=== PATIENT | female | born 1955 | race Caucasian/White ===

== ENCOUNTER 2021-06-17 14:01 | Emergency (ER) | payer OTHER, MEDICARE, MEDICAID ==
[2021-06-17 16:09] VITALS: BP 113/65; PULSE 69
[2021-06-17] MEDS ORDERED: Sodium Chloride 0.9% 1,000 ML IV STA (16:55)
[2021-06-17] MEDS ORDERED: Sodium Chloride 0.9% 500 ML IV STA (17:20)
--- NOTE | 2021-06-17 17:24 | CT ---
Head CT Technique: Multiple axial sections through the brain were obtained. Intravenous contrast was not utilized. Reconstructed coronal and sagittal images were obtained. Comparison: No prior intracranial imaging is available. Findings: Ventricles along with basal cisterns and sulci over the convexities are within normal limits for the patient's age. No abnormal parenchymal densities are seen. No evidence of intracranial hemorrhage is seen. No midline shift or mass-effect is seen. Bone window settings were reviewed which show mild atherosclerotic calcification within the carotid siphon and vertebral vessels. Visualized mastoid sinuses and paranasal sinuses show nothing acute. No acute calvarial abnormality is appreciated. Impression: 1. Minimal senescent change. 2. Nothing acute is seen on noncontrast CT study of the brain. Diagnostic code #2
--- NOTE | 2021-06-17 17:31 | CR ---
Chest: Frontal view of the chest was obtained. Comparison: No prior chest imaging is available. AICD is present. Prior cervical spine surgery is noted. Mild degenerative change is seen within both shoulders. Scoliosis is noted within the spine with scattered degenerative change. Lungs show no acute parenchymal change. Possible emphysematous change is present. Heart size is felt to be minimally prominent. Upper mediastinum is normal. Impression: 1. Probable emphysematous change. 2. Other findings as noted above. 3. Nothing acute is definitely appreciated. Diagnostic code #2
--- NOTE | 2021-06-17 17:43 | EDM.PDOC ---
ED HPI GENERAL MEDICAL PROBLEM - General Chief Complaint: Gastrointestinal Problem Stated Complaint: COVID + Time Seen by Provider: 06/17/21 16:04 Source of Information: Reports: Patient, RN Notes Reviewed History Limitations: Reports: No Limitations - History of Present Illness INITIAL COMMENTS - FREE TEXT/NARRATIVE: Patient is a 65-year-old female presenting to the emergency department with reported symptoms of Covid. Patient reports that she had vomiting during the night. She is a member of [employer] and the nurse also reported that she told that she was sleeping on the toilet because she had diarrhea. Patient is quite obtunded, but does know that she is in the hospital. She requires much coaxing in order to answer questions. She denies having a cough or feeling short of breath. Nursing staff is not able to give us much better report. They state that her blood pressure "was not normal "for herself and that it was higher than normal, however they cannot tell us what normal is for her. They state that her son said that she "was not herself" this morning. On arrival to ER, vital signs are stable the exception of oxygen slight low at 93%. The time of my exam, she was saturating 88% on room air. Throat Pain Score (Numeric/FACES): 2 - Related Data Allergies Allergy/AdvReac Type Severity Reaction Status Date / Time cephalexin [From Keflex] Allergy Other Verified 06/17/21 18:10 Cephalosporins Allergy Other Verified 06/17/21 18:10 Penicillins Allergy Other Verified 06/17/21 18:10 Tetracyclines Allergy Other Verified 06/17/21 18:10 varenicline Allergy Other Verified 06/17/21 18:10 Anesthesia Allergy Other Uncoded 06/17/21 18:10 Honeydew Allergy Other Uncoded 06/17/21 18:10 Home Meds: Home Meds Acetaminophen [Tylenol] 325 - 650 mg PO Q6H PRN 06/17/21 [History] Albuterol [Ventolin HFA] 2 puff INH Q6H 06/17/21 [History] Aspirin 81 mg PO DAILY 06/17/21 [History] Budesonide/Formoterol Fumarate [Symbicort 160-4.5 Mcg Inhaler] 2 puff INH BID 06/17/21 [History] Clopidogrel [Plavix] 75 mg PO DAILY 06/17/21 [History] Denosumab [Prolia] 1 ml SQ ASDIRECTED 06/17/21 [History] Fluticasone Propionate [Flonase] 1 spray MIKE DAILY 06/17/21 [History] Isosorbide Mononitrate [Isosorbide Mononitrate ER] 30 mg PO DAILY 06/17/21 [History] Lidocaine 5% [Lidoderm 5%] 1 patch TOP DAILY 06/17/21 [History] Menthol [Page] 3.2 mg MM Q4H PRN 06/17/21 [History] Metoprolol Succinate [Toprol Xl] 50 mg PO DAILY 06/17/21 [History] Morphine [MS Contin] 100 mg PO BID 06/17/21 [History] Multivit with Iron,Minerals [Flintstones Complete] 1 tab PO DAILY 06/17/21 [History] Pravastatin [Pravachol] 20 mg PO DAILY 06/17/21 [History] Pregabalin [Lyrica] 75 mg PO DAILY 06/17/21 [History] lisinopriL [Lisinopril] 2.5 mg PO DAILY 06/17/21 [History] polyethylene glycoL 3350 [Laxaclear] 17 gm PO DAILY 06/17/21 [History] traMADol HCl [Tramadol HCl] 1 tab PO Q4H PRN 06/17/21 [History] Past Medical History HEENT History: Reports: Allergic Rhinitis, Cataract Cardiovascular History: Reports: CAD, Heart Failure, High Cholesterol, Hypertension, [place], Other (See Below) Other Cardiovascular History: cardiac arrest, mitral insufficiency Respiratory History: Reports: Asthma, Sleep Apnea Other Respiratory History: emphysema Gastrointestinal History: Reports: Chronic Constipation Genitourinary History: Reports: Urinary Incontinence Musculoskeletal History: Reports: Back Pain, Chronic Social & Family History - Tobacco Use Tobacco Use Status *Q: Current Some Day Tobacco User Years of Tobacco use: 40 Packs/Tins Daily: 0.5 - Caffeine Use Caffeine Use: Reports: None - Recreational Drug Use Recreational Drug Use: No ED ROS GENERAL - Review of Systems Review Of Systems: See Below Constitutional: Reports: Fatigue. Denies: Fever, Chills HEENT: Reports: No Symptoms Respiratory: Reports: No Symptoms. Denies: Shortness of Breath, Cough Cardiovascular: Reports: No Symptoms. Denies: Chest Pain, Dyspnea on Exertion, Lightheadedness, Syncope Endocrine: Reports: No Symptoms GI/Abdominal: Reports: Abdominal Pain, Diarrhea, Nausea, Vomiting : Reports: No Symptoms Musculoskeletal: Reports: No Symptoms Skin: Reports: No Symptoms Neurological: Reports: No Symptoms. Denies: Dizziness, Headache Psychiatric: Reports: No Symptoms Hematologic/Lymphatic: Reports: No Symptoms Immunologic: Reports: No Symptoms ED EXAM, GENERAL - Physical Exam Exam: See Below Exam Limited By: No Limitations General Appearance: No Apparent Distress, Obtunded Eye Exam: Bilateral Eye: Normal Inspection Head: Atraumatic, Normocephalic Neck: Normal Inspection, Supple, Non-Tender, Full Range of Motion Respiratory/Chest: No Respiratory Distress, Lungs Clear, Normal Breath Sounds, No Accessory Muscle Use, Other (Faint expiratory wheeze throughout) Cardiovascular: Normal Peripheral Pulses, Regular Rate, Rhythm, No Gallop, No JVD, No Murmur, No Rub, Other (Mild redness, warmth, and swelling to left lower extremity.) GI/Abdominal: Normal Bowel Sounds, Soft, Non-Tender, No Organomegaly, No Distention, No Abnormal Bruit, No Mass Neurological: Slow to Respond, Other (Responds to verbal stimuli but quickly goes back to sleep. Will follow commands. Leather Sprayer are equal bilaterally. No unilateral weakness. No visible facial droop.) Psychiatric: Normal Affect #1 Interpretation EKG Date: 06/17/21 Time: 16:39 Rhythm: NSR Rate (Beats/Min): 75 [place]: Normal P-Wave: Present QRS: Normal ST-T: Normal QT: Normal [place]/PQ Interval: short Comparison: NA - No Prior EKG Course - Vital Signs Last Recorded V/S: Last Vital Signs Temp 96.9 F 06/17/21 16:04 Pulse 69 06/17/21 16:04 Resp 16 06/17/21 16:04 BP 113/65 06/17/21 16:04 Pulse Ox 93 L 06/17/21 16:04 - Orders/Labs/Meds Orders: Active Orders 24 hr Category Date Time Status BLOOD CULTURE [MREF] Stat Lab 06/17/21 17:25 Received BLOOD CULTURE [MREF] Stat Lab 06/17/21 17:30 Received Blood Culture x2 Reflex Set [OM.PC] Stat Oth 06/17/21 16:53 Ordered Labs: Laboratory Tests 06/17/21 06/17/21 06/17/21 Range/Units 16:30 16:30 16:30 WBC 14.65 H (3.98-10.04) K/mm3 RBC 4.63 (3.98-5.22) M/mm3 Hgb 13.8 (11.2-15.7) gm/dl Hct 42.1 (34.1-44.9) % MCV 90.9 (79.4-94.8) fl MCH 29.8 (25.6-32.2) pg MCHC 32.8 (32.2-35.5) g/dl RDW Std Deviation 46.0 (36.4-46.3) fL Plt Count 234 (182-369) K/mm3 MPV 9.9 (9.4-12.3) fl Neut % (Auto) 74.7 H (34.0-71.1) % Lymph % (Auto) 13.0 L (19.3-51.7) % [place] % (Auto) 11.8 (4.7-12.5) % Eos % (Auto) 0.2 L (0.7-5.8) Baso % (Auto) 0.1 (0.1-1.2) % Neut # (Auto) 10.94 H (1.56-6.13) K/mm3 Lymph # (Auto) 1.91 (1.18-3.74) K/mm3 [place] # (Auto) 1.73 H (0.24-0.36) K/mm3 Eos # (Auto) 0.03 L (0.04-0.36) K/mm3 Baso # (Auto) 0.01 (0.01-0.08) K/mm3 Manual Slide Review PT (9.7-12.0) SECONDS INR APTT (21.7-31.4) SECONDS D-Dimer, Quantitative (0.19-0.50) mg/L Puncture Site ABG pH (7.35-7.45) ABG pCO2 (35.0-45.0) mmHg ABG pO2 (80.0-100.0) mmHg ABG HCO3 (22.0-26.0) meq/L ABG O2 Saturation (96.0-97.0) % ABG Base Excess (-2-2.0) Roc Test O2 Delivery Device Sodium 134 L (136-145) mEq/L Potassium 4.7 (3.5-5.1) mEq/L Chloride 102 (98-107) mEq/L Carbon Dioxide 30 (21-32) mEq/L Anion Gap 6.7 (5-15) BUN 14 (7-18) mg/dL Creatinine 0.8 (0.55-1.02) mg/dL Est Cr Clr Drug Dosing 49.69 mL/min Estimated GFR (MDRD) > 60 (>60) mL/min BUN/Creatinine Ratio 17.5 (14-18) Glucose 102 H (70-99) mg/dL Lactic Acid (0.4-2.0) mmol/L Calcium 10.1 (8.5-10.1) mg/dL Total Bilirubin 0.6 (0.2-1.0) mg/dL AST 25 (15-37) U/L ALT 17 (14-59) U/L Alkaline Phosphatase 84 (46-116) U/L Troponin I < 0.017 (0.00-0.056) ng/mL C-Reactive Protein 3.4 H* (<1.0) mg/dL NT-Pro-B Natriuret Pep 238 H (0-125) pg/mL Total Protein 6.7 (6.4-8.2) g/dl Albumin 3.5 (3.4-5.0) g/dl Globulin 3.2 gm/dL Albumin/Globulin Ratio 1.1 (1-2) Urine Color (Yellow) Urine Appearance (Clear) Urine pH (5.0-8.0) Ur Specific [place] (1.005-1.030) Urine Protein (Negative) Urine Glucose (UA) (Negative) Urine Ketones (Negative) Urine Occult Blood (Negative) Urine Nitrite (Negative) Urine Bilirubin (Negative) Urine Urobilinogen (0.2-1.0) Ur Leukocyte Esterase (Negative) SARS-CoV-2 RNA (SHIRLEY) (NEGATIVE) 06/17/21 06/17/21 06/17/21 Range/Units 16:30 16:30 16:46 WBC (3.98-10.04) K/mm3 RBC (3.98-5.22) M/mm3 Hgb (11.2-15.7) gm/dl Hct (34.1-44.9) % MCV (79.4-94.8) fl MCH (25.6-32.2) pg MCHC (32.2-35.5) g/dl RDW Std Deviation (36.4-46.3) fL Plt Count (182-369) K/mm3 MPV (9.4-12.3) fl Neut % (Auto) (34.0-71.1) % Lymph % (Auto) (19.3-51.7) % [place] % (Auto) (4.7-12.5) % Eos % (Auto) (0.7-5.8) Baso % (Auto) (0.1-1.2) % Neut # (Auto) (1.56-6.13) K/mm3 Lymph # (Auto) (1.18-3.74) K/mm3 [place] # (Auto) (0.24-0.36) K/mm3 Eos # (Auto) (0.04-0.36) K/mm3 Baso # (Auto) (0.01-0.08) K/mm3 Manual Slide Review PT 10.6 (9.7-12.0) SECONDS INR 0.95 APTT 23.7 (21.7-31.4) SECONDS D-Dimer, Quantitative 4.05 H (0.19-0.50) mg/L Puncture Site Rt radial ABG pH 7.36 (7.35-7.45) ABG pCO2 50.6 H (35.0-45.0) mmHg ABG pO2 147.0 H (80.0-100.0) mmHg ABG HCO3 27.7 H (22.0-26.0) meq/L ABG O2 Saturation 99.0 H (96.0-97.0) % ABG Base Excess 1.9 (-2-2.0) Roc Test Positive O2 Delivery Device Room air Sodium (136-145) mEq/L Potassium (3.5-5.1) mEq/L Chloride (98-107) mEq/L Carbon Dioxide (21-32) mEq/L Anion Gap (5-15) BUN (7-18) mg/dL Creatinine (0.55-1.02) mg/dL Est Cr Clr Drug Dosing mL/min Estimated GFR (MDRD) (>60) mL/min BUN/Creatinine Ratio (14-18) Glucose (70-99) mg/dL Lactic Acid (0.4-2.0) mmol/L Calcium (8.5-10.1) mg/dL Total Bilirubin (0.2-1.0) mg/dL AST (15-37) U/L ALT (14-59) U/L Alkaline Phosphatase (46-116) U/L Troponin I (0.00-0.056) ng/mL C-Reactive Protein (<1.0) mg/dL NT-Pro-B Natriuret Pep (0-125) pg/mL Total Protein (6.4-8.2) g/dl Albumin (3.4-5.0) g/dl Globulin gm/dL Albumin/Globulin Ratio (1-2) Urine Color (Yellow) Urine Appearance (Clear) Urine pH (5.0-8.0) Ur Specific [place] (1.005-1.030) Urine Protein (Negative) Urine Glucose (UA) (Negative) Urine Ketones (Negative) Urine Occult Blood (Negative) Urine Nitrite (Negative) Urine Bilirubin (Negative) Urine Urobilinogen (0.2-1.0) Ur Leukocyte Esterase (Negative) SARS-CoV-2 RNA (SHIRLEY) (NEGATIVE) 06/17/21 06/17/21 06/17/21 Range/Units 16:55 17:25 18:40 WBC (3.98-10.04) K/mm3 RBC (3.98-5.22) M/mm3 Hgb (11.2-15.7) gm/dl Hct (34.1-44.9) % MCV (79.4-94.8) fl MCH (25.6-32.2) pg MCHC (32.2-35.5) g/dl RDW Std Deviation (36.4-46.3) fL Plt Count (182-369) K/mm3 MPV (9.4-12.3) fl Neut % (Auto) (34.0-71.1) % Lymph % (Auto) (19.3-51.7) % [place] % (Auto) (4.7-12.5) % Eos % (Auto) (0.7-5.8) Baso % (Auto) (0.1-1.2) % Neut # (Auto) (1.56-6.13) K/mm3 Lymph # (Auto) (1.18-3.74) K/mm3 [place] # (Auto) (0.24-0.36) K/mm3 Eos # (Auto) (0.04-0.36) K/mm3 Baso # (Auto) (0.01-0.08) K/mm3 Manual Slide Review PT (9.7-12.0) SECONDS INR APTT (21.7-31.4) SECONDS D-Dimer, Quantitative (0.19-0.50) mg/L Puncture Site ABG pH (7.35-7.45) ABG pCO2 (35.0-45.0) mmHg ABG pO2 (80.0-100.0) mmHg ABG HCO3 (22.0-26.0) meq/L ABG O2 Saturation (96.0-97.0) % ABG Base Excess (-2-2.0) Roc Test O2 Delivery Device Sodium (136-145) mEq/L Potassium (3.5-5.1) mEq/L Chloride (98-107) mEq/L Carbon Dioxide (21-32) mEq/L Anion Gap (5-15) BUN (7-18) mg/dL Creatinine (0.55-1.02) mg/dL Est Cr Clr Drug Dosing mL/min Estimated GFR (MDRD) (>60) mL/min BUN/Creatinine Ratio (14-18) Glucose (70-99) mg/dL Lactic Acid 0.9 (0.4-2.0) mmol/L Calcium (8.5-10.1) mg/dL Total Bilirubin (0.2-1.0) mg/dL AST (15-37) U/L ALT (14-59) U/L Alkaline Phosphatase (46-116) U/L Troponin I (0.00-0.056) ng/mL C-Reactive Protein (<1.0) mg/dL NT-Pro-B Natriuret Pep (0-125) pg/mL Total Protein (6.4-8.2) g/dl Albumin (3.4-5.0) g/dl Globulin gm/dL Albumin/Globulin Ratio (1-2) Urine Color Dark yellow (Yellow) Urine Appearance Clear (Clear) Urine pH 5.5 (5.0-8.0) Ur Specific [place] 1.015 (1.005-1.030) Urine Protein Negative (Negative) Urine Glucose (UA) Negative (Negative) Urine Ketones Trace H (Negative) Urine Occult Blood Negative (Negative) Urine Nitrite Negative (Negative) Urine Bilirubin 1+ H (Negative) Urine Urobilinogen 0.2 (0.2-1.0) Ur Leukocyte Esterase Negative (Negative) SARS-CoV-2 RNA (SHIRLEY) Negative (NEGATIVE) Meds: Medications Discontinued Medications Generic Name Dose Route Start Last Admin Trade Name Freq PRN Reason Stop Dose Admin Sodium Chloride 1,000 mls @ 126 mls/hr 06/17/21 16:55 06/17/21 17:56 Normal Saline IV 06/18/21 00:51 126 mls/hr NOW STA Administration Sodium Chloride 500 mls @ 999 mls/hr 06/17/21 17:20 06/17/21 17:55 Normal Saline IV 06/17/21 17:50 999 mls/hr NOW STA Administration Sodium Chloride 100 mls @ 60 mls/hr 06/17/21 18:15 06/17/21 18:13 Normal Saline IV 60 mls/hr ASDIRECTED BRET Administration Iopamidol 100 ml 06/17/21 18:10 06/17/21 18:13 Iopamidol 755 Mg/Ml 100 Ml Bottle IVPUSH 06/17/21 18:11 100 ml ONETIME ONE Administration Naloxone HCl 0.2 mg 06/17/21 18:22 Naloxone 0.4 Mg/Ml Sdv IVPUSH 06/17/21 18:23 ONETIME ONE Sodium Chloride 10 ml 06/17/21 18:10 06/17/21 18:13 Sodium Chloride 0.9% 10 Ml Syringe FLUSH 10 ml ONETIME PRN Administration Keep Vein Open - Re-Assessments/Exams Free Text/Narrative Re-Assessment/Exam: Patient is a 65-year-old female presenting to the emergency department for evaluation of Covid symptoms. It is unclear completely what the symptoms are as patient is quite obtunded and not answering questions without significant coaxing. Vital signs were stable upon triage, however, at the time of my exam, oxygen saturations were 88% on room air. She was placed on 1 L of oxygen by nasal cannula. Review of [facility] documentation indicates patient does have a history of COPD as well as extensive cardiac history. There is no indication of a diagnosis of dementia. she is currently on Plavix and aspirin. There is some indication that she had vomiting and diarrhea last evening. On exam, she has some redness and warmth to her left lower extremity. She has diffuse expiratory wheezing on auscultation of the lung rodas. Leather Sprayer are equal bilaterally. There is no visible facial droop or unilateral deficits. I have ordered septic work-up and head CT. I will attempt to contact the pace nurse to get more information with regards to the events and patient history. 06/17/21 1735 Hematology significant for WBC elevated at 14.65, D-dimer elevated at 4.05, sodium 134, CRP 3.4, proBNP 238. Covid is negative. Troponin is undetectably low. ABGs were completed on room air and show 99% oxygen saturation however, the 1 L of oxygen had just been turned off prior to the ABG draw. CT of the head shows minimal senescent changes with no acute abnormalities. Chest x-ray shows probable emphysematous change with no other findings. Covid is negative. I have ordered CT angiogram of the chest. 06/17/21 18:25 Further review of patient's home medications, she is prescribed MS Contin 100 mg twice daily as well as tramadol. There is nothing in her work-up thus far to explain her altered mental status. I have ordered Narcan 0.2 mg IV to be given now. I did visit with the patient nurse interventional neuroradiologist. They report that she is independent and alert and oriented at home. She has been on the same dose of MS Contin and tramadol since she has come to [place] and she has been with them for about 2 years. She has no history of abusing her pain medications. 06/17/21 19:01 RN notified me that she went in to give the Narcan and patient was completely awake and stated that she needed to use the bathroom. She got up on her own volition and use the bedside commode. I went to visit with the patient. She is completely alert, oriented, neurologically intact. Reports that she was up all evening with vomiting and diarrhea. At that time she had significant abdominal cramping. Reports symptoms have completely resolved. She does not remember coming to the emergency department. She reports that the last thing she remembers is her pace nurse loading her into a car. She states right now she feels well. She does report that 2 weeks ago she had thrombectomy of DVT in her left lower extremity. She has continued to have the redness, warmth, and swelling since the surgery. I am going to complete a venous Doppler ultrasound of left lower extremity to ensure that she did not reembolize. Patient is unsure if she took her medications this morning. She thinks she may have taken her MS Contin but not her other morning meds. 06/17/21 20:44 Venous Doppler ultrasound of the left lower extremity impression as follows: 1. Soft tissue edema is seen within the lower extremity. 2. Soft tissue finding as described above presumably due to a slightly abnormal lymph node. Please correlate that the patient has no physical symptoms anterior to the left common femoral vein. 3. No findings of DVT are seen within the left lower extremity. Patient reports that she does have follow-up scheduled with her cardiovascular surgeon who completed the thrombectomy which she believes is next week. Denies any significant pain of the lower extremity. Patient is quite tired, however she awakes easily. Nursing staff had her get up and walk and she did well independently. She reports that she is ready to go home. We will discharge her. Her son will pick her up. Departure - Departure Time of Disposition: 20:47 Disposition: Home, Self-Care 01 Condition: Good Clinical Impression: Diarrhea, Vomiting - Discharge Information *PRESCRIPTION DRUG MONITORING PROGRAM REVIEWED*: No *COPY OF PRESCRIPTION DRUG MONITORING REPORT IN PATIENT LORI: No Instructions: Nausea and Vomiting, Adult Referrals: PCP,None [Primary Care Provider] - Forms: ED Department Discharge Additional Instructions: You were seen in the emergency department today for evaluation after having vo miting, diarrhea, abdominal pain last evening as well as feeling weak today. Work-up included blood work, EKG, chest x-ray, head CT, Covid test and ultrasound of your left lower extremity. Results of your work-up were found to be overall normal. You do not have a blood clot in your leg. You do not have Covid. Your blood work was normal. Recommend that you go home and rest. You were quite tired in the ER, however he reported not sleeping well last evening due to vomiting and diarrhea. If you should experience any new or worsening symptoms, please not hesitate to return to the emergency department for reevaluation. Sepsis Event Note (ED) - Evaluation Sepsis Screening Result: No Definite Risk - Focused Exam Vital Signs: Vital Signs Temp Pulse Resp BP Pulse Ox 09/20/21 16:04 96.9 F 69 16 113/65 93 L - My Orders Last 24 Hours: My Active Orders 06/17/21 16:53 Blood Culture x2 Reflex Set [OM.PC] Stat 06/17/21 17:25 BLOOD CULTURE [MREF] Stat 06/17/21 17:30 BLOOD CULTURE [MREF] Stat - Assessment/Plan Last 24 Hours: My Active Orders 06/17/21 16:53 Blood Culture x2 Reflex Set [OM.PC] Stat 06/17/21 17:25 BLOOD CULTURE [MREF] Stat 06/17/21 17:30 BLOOD CULTURE [MREF] Stat
[2021-06-17] MEDS ORDERED: Sodium Chloride 0.9% 10 ML Syringe FLUSH PRN (18:10)
[2021-06-17] MEDS ORDERED: Iopamidol 755 Mg/ML 100 ML Bottle IVPUSH ONE (18:10)
[2021-06-17] MEDS ORDERED: Sodium Chloride 0.9% 100 ML IV SCH (18:15)
[2021-06-17] MEDS ORDERED: Naloxone 0.4 MG/ML SDV IVPUSH ONE (18:22)
--- NOTE | 2021-06-17 18:37 | CT ---
CT chest Technique: Multiple axial sections through the chest were obtained. Intravenous contrast was utilized. Study has been performed as a pulmonary angiogram protocol. Comparison: No prior CT chest study is available, prior chest x-ray performed earlier on the same day (4:13 PM). Findings: Pulmonary arteries are well opacified. No filling defects are seen to indicate pulmonary embolism. Thoracic aorta shows mild atherosclerotic calcifications with no aneurysm seen. Artifact is noted from AICD. Mediastinum shows no adenopathy. Hilar regions show no adenopathy. No axillary adenopathy is seen. Heart size is within normal limits. No pericardial thickening is seen. Visualized upper abdominal structures show a small cyst within the left lobe of the liver measuring 1.0 cm. Lung window settings were reviewed which show diffuse emphysematous change. No acute parenchymal change is otherwise seen. Bone window settings were reviewed which show scattered degenerative change throughout the spine. No acute osseous abnormality is appreciated. Impression: 1. No findings of pulmonary embolism. 2. Diffuse emphysematous change. 3. Nothing acute is appreciated on CT study of the chest. Diagnostic code #2
--- NOTE | 2021-06-17 19:54 | US ---
Left lower extremity deep venous ultrasound: Duplex and color Doppler evaluation was obtained of the left common femoral, proximal greater saphenous, superficial femoral, popliteal, posterior tibial and peroneal veins. Comparison: No previous venous imaging is available. Findings: There is a solid abnormality being seen anterior to the common femoral vein measuring 2.7 x 3.1 x 1.1 cm. This finding is most likely a slightly abnormal lymph node. Soft tissue edema is seen within the lower extremity. Normal phasic flow, augmentation and compression is seen. Impression: 1. Soft tissue edema is seen within the lower extremity. 2. Soft tissue finding as described above presumably due to slightly abnormal lymph node. Please correlate that the patient has no physical symptoms anterior to the left common femoral vein. 3. No findings of deep venous thrombosis are seen within the left lower extremity. Diagnostic code #2
== END 2021-06-17 21:00 | disposition home or self-care (01) ==
LOC: JD.ED 14:01 → MERGE 14:01 → JD.ED 21:00
DX: R11.2 Nausea with vomiting, unspecified (principal); R19.7 Diarrhea, unspecified; I25.10 Atherosclerotic heart disease of native coronary artery without angina pectoris; I11.0 Hypertensive heart disease with heart failure; I50.9 Heart failure, unspecified; E78.00 Pure hypercholesterolemia, unspecified; I25.2 Old myocardial infarction; Z88.1 Allergy status to other antibiotic agents; Z88.0 Allergy status to penicillin; Z91.018 Allergy to other foods; Z88.4 Allergy status to anesthetic agent; Z79.82 Long term (current) use of aspirin; Z79.01 Long term (current) use of anticoagulants; Z20.822 Contact with and (suspected) exposure to COVID-19
CPT/HCPCS: 36415; 36600; 70450; 71045; 71275; 80053; 81003; 82803; 83605; 83880; 84484; 85025; 85379; 85610; 85730; 86140; 87040; 87635; 93005; 93971; 99284; J7030; Q9967; 93010; U0002

== ENCOUNTER 2022-07-28 16:14 | Emergency (ER) | payer OTHER, MEDICARE, MEDICAID ==
[2022-07-28] MEDS ORDERED: Acetaminophen 325 MG Tab PO ONE (18:44)
[2022-07-28 18:46] VITALS: BP 145/84; PULSE 85
== END 2022-07-28 18:51 | disposition home or self-care (01) ==
LOC: JD.ED 16:14
DX: S00.83XA Contusion of other part of head, initial encounter (principal); S00.31XA Abrasion of nose, initial encounter; S80.211A Abrasion, right knee, initial encounter; S80.212A Abrasion, left knee, initial encounter; I25.10 Atherosclerotic heart disease of native coronary artery without angina pectoris; E78.00 Pure hypercholesterolemia, unspecified; I11.0 Hypertensive heart disease with heart failure; I50.9 Heart failure, unspecified; I25.2 Old myocardial infarction; J43.9 Emphysema, unspecified; Z88.1 Allergy status to other antibiotic agents; Z88.0 Allergy status to penicillin; Z88.4 Allergy status to anesthetic agent; Z91.048 Other nonmedicinal substance allergy status; Z79.82 Long term (current) use of aspirin; Z79.899 Other long term (current) drug therapy; W01.198A Fall on same level from slipping, tripping and stumbling with subsequent striking against other object, initial encounter; Y92.480 Sidewalk as the place of occurrence of the external cause
CPT/HCPCS: 36415; 70450; 70450-26; 70486; 70486-26; 72125; 72125-26; 80053; 85025; 85610; 85730; 99284

== ENCOUNTER 2023-07-29 18:53 | Emergency (ER) | payer OTHER, MEDICARE, MEDICAID ==
[2023-07-29 19:12] VITALS: BP 169/94; PULSE 72
[2023-07-29 19:44] LABS: BASOPHILS ABSOLUTE AUTO 0.1 K/mm3 (0.0-0.2); BASOPHILS PERCENT AUTO 0.3 % (0.0-1.0); EOSINOPHILS ABSOLUTE AUTO 0.1 K/mm3 (0.0-0.4); HEMATOCRIT 43.3 % (37.0-47.0); HEMOGLOBIN 14.9 gm/dl (12.0-16.0); IMMATURE GRAN ABSOLUTE AUTO 0.04 K/mm3 (0.00-0.05); IMMATURE GRAN PERCENT AUTO 0.3 % (0.0-0.4); LYMPHOCYTES ABSOLUTE AUTO 2.2 K/mm3 (1.0-4.8); LYMPHOCYTES PERCENT AUTO 14.9 % (24.0-44.0); MEAN CORPUSCULAR HEMOGLOBIN 31.5 pg (28.0-32.0); MEAN CORPUSCULAR HGB CONC 34.4 g/dl (32.0-36.0); MEAN CORPUSCULAR VOLUME 91.5 fl (83.0-99.0); MEAN PLATELET VOLUME 9.9 fl (9.4-12.3); MONOCYTES ABSOLUTE AUTO 1.4 K/mm3 (0.0-0.8); MONOCYTES PERCENT AUTO 9.9 % (0.0-8.0); NEUTROPHILS ABSOLUTE AUTO 10.7 K/mm3 (1.8-7.7); NEUTROPHILS PERCENT AUTO 73.6 % (41.0-71.0); PLATELET COUNT,PLT 160 K/mm3 (150-400); RED BLOOD CELL COUNT 4.73 M/mm3 (4.10-5.30); WHITE BLOOD CELL COUNT,WBC 14.49 K/mm3 (3.9-11.3)
[2023-07-29 20:00] LABS: INR 0.99; PROTHROMBIN TIME 10.6 SECONDS (9.7-12.0)
[2023-07-29 20:01] LABS: PTT,PARTIAL THROMBOPLSTIN TIME 25.4 SECONDS (21.7-31.4)
[2023-07-29] MEDS ORDERED: Tranexamic Acid 1,000 MG/10 ML Vial TOP ONE (20:22)
[2023-07-29] MEDS ORDERED: Ondansetron 4 MG/2 ML SDV IM ONE (21:44)
[2023-07-29] MEDS ORDERED: HYDROmorphone 1 MG/ML Syringe IM ONE (21:45)
[2023-07-29] MEDS ORDERED: Naloxone 0.4 MG/ML SDV IVPUSH PRN (21:45)
== END 2023-07-29 22:24 | disposition home or self-care (01) ==
LOC: JD.ED 18:53
DX: K91.841 Postprocedural hemorrhage of a digestive system organ or structure following other procedure (principal); I25.10 Atherosclerotic heart disease of native coronary artery without angina pectoris; I11.0 Hypertensive heart disease with heart failure; I50.9 Heart failure, unspecified; I25.2 Old myocardial infarction; E78.00 Pure hypercholesterolemia, unspecified; J43.9 Emphysema, unspecified; Z88.1 Allergy status to other antibiotic agents; Z88.0 Allergy status to penicillin; Z88.4 Allergy status to anesthetic agent; Z88.8 Allergy status to other drugs, medicaments and biological substances; Z91.048 Other nonmedicinal substance allergy status; Z79.82 Long term (current) use of aspirin; Z79.899 Other long term (current) drug therapy
CPT/HCPCS: 36415; 85025; 85610; 85730; 96372; 99283; J1170; J2405; 99284; J3490

== ENCOUNTER 2024-08-28 11:10 | Inpatient (IN) | payer OTHER, MEDICAID ==
[2024-08-28] MEDS ORDERED: Sodium Chloride 0.9% 10 ML Syringe FLUSH PRN ×2 (11:31→15:39)
[2024-08-28] MEDS ORDERED: Naloxone 0.4 MG/ML SDV IVPUSH PRN ×2 (11:33→14:37)
[2024-08-28] MEDS: fentaNYL 100 MCG/2 ML SDV IVPUSH ONE ×2 (11:37→14:57)
[2024-08-28 11:47] LABS: BASOPHILS PERCENT AUTO 0.4 % (0.0-1.0); EOSINOPHILS PERCENT AUTO 0.5 % (0.0-6.0); HEMATOCRIT 43.3 % (37.0-47.0); HEMOGLOBIN 13.9 gm/dl (12.0-16.0); IMMATURE GRAN ABSOLUTE AUTO 0.03 K/mm3 (0.00-0.05); IMMATURE GRAN PERCENT AUTO 0.4 % (0.0-0.4); LYMPHOCYTES ABSOLUTE AUTO 1.8 K/mm3 (1.0-4.8); LYMPHOCYTES PERCENT AUTO 22.8 % (24.0-44.0); MEAN CORPUSCULAR HEMOGLOBIN 29.3 pg (28.0-32.0); MEAN CORPUSCULAR HGB CONC 32.1 g/dl (32.0-36.0); MEAN CORPUSCULAR VOLUME 91.4 fl (83.0-99.0); MONOCYTES ABSOLUTE AUTO 0.5 K/mm3 (0.0-0.8); MONOCYTES PERCENT AUTO 6.4 % (0.0-8.0); NEUTROPHILS ABSOLUTE AUTO 5.5 K/mm3 (1.8-7.7); NEUTROPHILS PERCENT AUTO 69.5 % (41.0-71.0); PLATELET COUNT,PLT 202 K/mm3 (150-400); RED BLOOD CELL COUNT 4.74 M/mm3 (4.10-5.30); WHITE BLOOD CELL COUNT,WBC 7.95 K/mm3 (3.9-11.3)
[2024-08-28 12:16] LABS: A/G RATIO 1.2 (1-2); ANION GAP 9.1 (5-15); BILIRUBIN TOTAL 0.5 mg/dL (0.2-1.0); BUN/CREATININE RATIO 21.4 (14-18); C-REACTIVE PROTEIN 0.09 mg/dL (<0.30); CALCIUM 8.5 mg/dL (8.5-10.1); CREATININE 0.7 mg/dL (0.55-1.02); EST CRCL DRUG DOSING (CG) 56.43 mL/min; PROTEIN TOTAL,TP 5.6 g/dl (6.4-8.2)
[2024-08-28 12:21] LABS: POTASSIUM,K 4.1 mEq/L (3.5-5.1)
[2024-08-28 12:31] LABS: LACTIC ACID 1.5 mmol/L (0.4-2.0)
[2024-08-28] MEDS: Iopamidol 612 MG/ML 100 ML Bottle IVPUSH ONE (13:09)
[2024-08-28] MEDS: Sodium Chloride 0.9% 10 ML Syringe FLUSH ONE (13:10)
[2024-08-28] MEDS: Sodium Chloride 0.9% 1,000 ML IV SCH (14:38)
[2024-08-28 14:46] LABS: INR 1.03; PROTHROMBIN TIME 10.9 SECONDS (9.7-12.0)
[2024-08-28 14:47] LABS: PTT,PARTIAL THROMBOPLSTIN TIME 24.8 SECONDS (21.7-31.4)
[2024-08-28] MEDS: metroNIDAZOLE/Normal Saline 500 MG in Premix Bag 1 BAG IV SCH ×2 (15:27→21:17)
[2024-08-28] MEDS: Levofloxacin/Dextrose 5%-Water 750 MG in Premix Bag 1 BAG IV ONE (15:28)
[2024-08-28] MEDS ORDERED: Lactated Ringers 1,000 ML IV SCH (15:45)
[2024-08-28] MEDS ORDERED: Dexamethasone 4 MG/ML 5 ML MDV ONE (15:52)
[2024-08-28] MEDS ORDERED: fentaNYL 250 MCG/5 ML SDV ONE (15:52)
[2024-08-28] MEDS ORDERED: Ondansetron 4 MG/2 ML SDV ONE (15:52)
[2024-08-28] MEDS ORDERED: Propofol 200 MG/20 ML SDV ONE (15:52)
[2024-08-28] MEDS ORDERED: Sodium Chloride 0.9% 100 ML ONE (15:52)
[2024-08-28] MEDS ORDERED: Rocuronium 50 MG/5 ML Vial ONE ×2 (15:52→17:03)
[2024-08-28] MEDS ORDERED: Lidocaine 1% 5 ML VIAL ONE (15:52)
[2024-08-28] MEDS ORDERED: Lactated Ringers 1,000 ML ONE (15:52)
[2024-08-28] MEDS ORDERED: Phenylephrine 1% 10 MG/ML SDV ONE (15:59)
[2024-08-28 16:33] LABS: LACTIC ACID 3.7 mmol/L (0.4-2.0)
[2024-08-28] MEDS ORDERED: Ketamine 200 MG/20 ML MDV ONE (16:55)
[2024-08-28] MEDS ORDERED: HYDROmorphone 0.5 MG/0.5 ML Syringe ONE (17:44)
[2024-08-28] MEDS ORDERED: HYDROmorphone 0.5 MG/0.5 ML Syringe IVPUSH PRN (18:02)
[2024-08-28] MEDS ORDERED: fentaNYL 100 MCG/2 ML SDV IVPUSH PRN (18:02)
[2024-08-28 18:20] LABS: BASE EXCESS ARTERIAL -4.7 (-2-2.0); BICARBONATE,ARTERIAL 22.8 meq/L (22.0-26.0)
[2024-08-28] MEDS: Lactated Ringers 1,000 ML IV SCH ×2 (19:00→22:00)
[2024-08-28] MEDS: propofoL 1,000 MG/100 ML 100 ML IV SCH (19:06)
[2024-08-28] MEDS: EPINEPHrine 1 MG in Dextrose 5% in Water 99 ML IV SCH (19:22)
[2024-08-28] MEDS: fentaNYL 2,500 MCG in Sodium Chloride 0.9% 200 ML IV SCH (19:48)
[2024-08-28 20:24] LABS: BASE EXCESS ARTERIAL -3.1 (-2-2.0); BICARBONATE,ARTERIAL 22.8 meq/L (22.0-26.0); PCO2 ARTERIAL 46.2 mmHg (35.0-45.0)
[2024-08-28] MEDS: Aztreonam 2 GM in Sodium Chloride 0.9% 100 ML IV SCH (20:37)
[2024-08-28 20:51] LABS: ANION GAP 12.9 (5-15); BUN/CREATININE RATIO 26.7 (14-18); CALCIUM 8.8 mg/dL (8.5-10.1); CREATININE 0.6 mg/dL (0.55-1.02); EST CRCL DRUG DOSING (CG) 65.84 mL/min; MAGNESIUM 1.5 mg/dL (1.8-2.4); POTASSIUM,K 3.9 mEq/L (3.5-5.1); TSH 0.683 uIU/mL (0.358-3.74)
[2024-08-28] MEDS ORDERED: Ketorolac 15 MG/ML SDV IVPUSH PRN (22:07)
[2024-08-28] MEDS: Morphine 2 MG/ML SYRINGE IVPUSH PRN (22:34)
[2024-08-28] MEDS: Heparin Sodium 5,000 Units/ML Vial SUBCUT SCH (23:03)
[2024-08-28] MEDS: Albumin 25% 50 ML ONE (23:04)
[2024-08-28] MEDS: Benzocaine 20% Topical Spray UD MUCMEM ONE (23:04)
[2024-08-28] MEDS: Sodium Chloride 0.9% 500 ML ONE (23:04)
[2024-08-28] MEDS: Dextrose 5% in Water 100 ML ONE (23:06)
[2024-08-28] MEDS: EPINEPHrine 1:10,000 1 MG/10 ML Syringe ONE (23:06)
[2024-08-28] MEDS: Sodium Chloride 0.9% 500 ML IV ONE (23:06)
[2024-08-28] MEDS: EPINEPHrine 1 MG/ML SDV ONE (23:06)
[2024-08-28] MEDS: Magnesium Sulfate/Water Premix 2 GM/50 ML BAG IV ONE (23:15)
[2024-08-28] MEDS: Sodium Chloride 0.9% 10 ML Syringe FLUSH SCH (23:15)
[2024-08-28] MEDS: Pantoprazole 40 MG Vial IVPUSH SCH (23:15)
[2024-08-29] MEDS: Ketorolac 15 MG/ML SDV IVPUSH SCH (00:03)
[2024-08-29 00:30] LABS: LACTIC ACID 3.9 mmol/L (0.4-2.0)
[2024-08-29] MEDS: Lactated Ringers 1,000 ML IV SCH (00:38)
[2024-08-29] MEDS: Morphine 2 MG/ML SYRINGE IVPUSH PRN (02:04)
[2024-08-29] MEDS: Hyaluronidase, Human Recomb. 150 Unit/ML Vial SUBCUT ONE (02:05)
[2024-08-29 05:52] LABS: HEMOGLOBIN 13.3 gm/dl (12.0-16.0); MEAN CORPUSCULAR HEMOGLOBIN 29.6 pg (28.0-32.0); MEAN CORPUSCULAR HGB CONC 33.3 g/dl (32.0-36.0); MEAN CORPUSCULAR VOLUME 88.9 fl (83.0-99.0); MEAN PLATELET VOLUME 10.3 fl (9.4-12.3); PLATELET COUNT,PLT 185 K/mm3 (150-400)
[2024-08-29 06:24] LABS: LACTIC ACID 2.5 mmol/L (0.4-2.0)
[2024-08-29 07:18] LABS: ANION GAP 12.4 (5-15); BUN/CREATININE RATIO 22.5 (14-18); CALCIUM 8.7 mg/dL (8.5-10.1); CREATININE 0.8 mg/dL (0.55-1.02); EST CRCL DRUG DOSING (CG) 49.38 mL/min; POTASSIUM,K 4.4 mEq/L (3.5-5.1)
[2024-08-29] MEDS: fentaNYL 12 MCG/HR Transdermal Patch TRDERM SCH (09:19)
[2024-08-29] MEDS: Morphine 4 MG/ML Syringe IVPUSH PRN (18:05)
[2024-08-29] MEDS: ALPRAZolam 0.5 MG Tab PO ONE (19:53)
[2024-08-29] MEDS: Pregabalin 75 MG Cap PO SCH (21:21)
[2024-08-30 04:35] LABS: BASOPHILS PERCENT AUTO 0.3 % (0.0-1.0); EOSINOPHILS PERCENT AUTO 0.4 % (0.0-6.0); HEMATOCRIT 34.9 % (37.0-47.0); HEMOGLOBIN 11.8 gm/dl (12.0-16.0); IMMATURE GRAN ABSOLUTE AUTO 0.06 K/mm3 (0.00-0.05); IMMATURE GRAN PERCENT AUTO 0.8 % (0.0-0.4); LYMPHOCYTES ABSOLUTE AUTO 1.1 K/mm3 (1.0-4.8); LYMPHOCYTES PERCENT AUTO 14.5 % (24.0-44.0); MEAN CORPUSCULAR HEMOGLOBIN 29.7 pg (28.0-32.0); MEAN CORPUSCULAR HGB CONC 33.8 g/dl (32.0-36.0); MEAN CORPUSCULAR VOLUME 87.9 fl (83.0-99.0); MEAN PLATELET VOLUME 10.5 fl (9.4-12.3); MONOCYTES ABSOLUTE AUTO 0.4 K/mm3 (0.0-0.8); MONOCYTES PERCENT AUTO 5.8 % (0.0-8.0); NEUTROPHILS ABSOLUTE AUTO 5.9 K/mm3 (1.8-7.7); NEUTROPHILS PERCENT AUTO 78.2 % (41.0-71.0); PLATELET COUNT,PLT 134 K/mm3 (150-400); RED BLOOD CELL COUNT 3.97 M/mm3 (4.10-5.30); WHITE BLOOD CELL COUNT,WBC 7.53 K/mm3 (3.9-11.3)
[2024-08-30 05:18] LABS: ANION GAP 11.4 (5-15); CALCIUM 8.9 mg/dL (8.5-10.1); CREATININE 0.5 mg/dL (0.55-1.02); POTASSIUM,K 3.4 mEq/L (3.5-5.1); T4 FREE 1.19 ng/dL (0.76-1.46); TSH 0.726 uIU/mL (0.358-3.74)
[2024-08-30] MEDS: Pravastatin 20 MG Tab PO SCH (08:18)
[2024-08-30] MEDS: Pregabalin 75 MG Cap PO SCH (08:19)
[2024-08-30] MEDS: Tiotropium Bromide 4 GM Inhalation Spray (2.5mcg/1 dose; 10 doses) INH SCH (08:41)
[2024-08-30] MEDS: Isosorbide Mononitrate 30 MG Tab.ER PO SCH (09:00)
[2024-08-30] MEDS: Potassium Chloride 10 MEQ in Premix Bag 1 BAG IV SCH (13:21)
[2024-08-30] MEDS: LORazepam 2 MG/ML SDV IVPUSH PRN (14:51)
[2024-08-30] MEDS ORDERED: Labetalol 100 MG/20 ML MDV IVPUSH PRN (19:08)
[2024-08-30] MEDS ORDERED: hydrALAZINE 20 MG/ML SDV IVPUSH PRN (19:08)
[2024-08-31 06:42] LABS: BASOPHILS PERCENT AUTO 0.2 % (0.0-1.0); EOSINOPHILS ABSOLUTE AUTO 0.3 K/mm3 (0.0-0.4); HEMATOCRIT 34.8 % (37.0-47.0); HEMOGLOBIN 11.5 gm/dl (12.0-16.0); IMMATURE GRAN ABSOLUTE AUTO 0.05 K/mm3 (0.00-0.05); IMMATURE GRAN PERCENT AUTO 0.4 % (0.0-0.4); LYMPHOCYTES ABSOLUTE AUTO 1.7 K/mm3 (1.0-4.8); MEAN CORPUSCULAR HEMOGLOBIN 29.3 pg (28.0-32.0); MEAN CORPUSCULAR VOLUME 88.8 fl (83.0-99.0); MEAN PLATELET VOLUME 10.9 fl (9.4-12.3); MONOCYTES ABSOLUTE AUTO 0.6 K/mm3 (0.0-0.8); MONOCYTES PERCENT AUTO 5.7 % (0.0-8.0); NEUTROPHILS ABSOLUTE AUTO 8.6 K/mm3 (1.8-7.7); NEUTROPHILS PERCENT AUTO 75.7 % (41.0-71.0); PLATELET COUNT,PLT 150 K/mm3 (150-400); RED BLOOD CELL COUNT 3.92 M/mm3 (4.10-5.30); WHITE BLOOD CELL COUNT,WBC 11.32 K/mm3 (3.9-11.3)
[2024-08-31 06:58] LABS: ANION GAP 14.2 (5-15); CALCIUM 8.6 mg/dL (8.5-10.1); CREATININE 0.5 mg/dL (0.55-1.02); MAGNESIUM 1.6 mg/dL (1.8-2.4); PHOSPHORUS 2.2 mg/dL (2.6-4.7); POTASSIUM,K 3.2 mEq/L (3.5-5.1)
[2024-08-31] MEDS: Metoprolol Succinate 50 MG Tab.ER PO SCH (08:30)
[2024-08-31] MEDS ORDERED: metroNIDAZOLE/Normal Saline 500 MG in Premix Bag 1 BAG IV SCH (09:30)
[2024-08-31] MEDS: metroNIDAZOLE/Normal Saline 500 MG in Premix Bag 1 BAG IV SCH (17:49)
[2024-08-31] MEDS: Magnesium Sulfate/Water Premix 2 GM/50 ML BAG IV ONE (18:00)
[2024-08-31] MEDS: Polyethylene Glycol 3350 Powder 17 GM Packet PO SCH (20:00)
[2024-08-31] MEDS: Docusate Sodium 100 MG Cap PO SCH (20:00)
[2024-08-31] MEDS: Phosphorus #1 250 MG Tab PO ONE (20:00)
[2024-08-31] MEDS: Potassium Chloride 20 MEQ Tab.ER PO ONE (20:00)
[2024-09-01 04:32] LABS: HEMATOCRIT 33.5 % (37.0-47.0); HEMOGLOBIN 11.4 gm/dl (12.0-16.0); MEAN CORPUSCULAR HEMOGLOBIN 29.5 pg (28.0-32.0); MEAN CORPUSCULAR VOLUME 86.6 fl (83.0-99.0); MEAN PLATELET VOLUME 10.9 fl (9.4-12.3); PLATELET COUNT,PLT 150 K/mm3 (150-400); RED BLOOD CELL COUNT 3.87 M/mm3 (4.10-5.30); WHITE BLOOD CELL COUNT,WBC 11.95 K/mm3 (3.9-11.3)
[2024-09-01 04:55] LABS: ANION GAP 10.6 (5-15); CALCIUM 8.1 mg/dL (8.5-10.1); CREATININE 0.5 mg/dL (0.55-1.02); MAGNESIUM 1.8 mg/dL (1.8-2.4); POTASSIUM,K 3.6 mEq/L (3.5-5.1)
[2024-09-01] MEDS: Morphine 15 MG Tab.ER PO SCH (08:03)
[2024-09-01] MEDS: Aspirin 81 MG Tab.Chew PO SCH (09:11)
[2024-09-01] MEDS: Clopidogrel 75 MG Tab PO SCH (09:11)
[2024-09-01] MEDS: Nicotine 14 MG/24 Hr Patch TRDERM SCH (10:02)
[2024-09-01] MEDS: Potassium Phosphates 30 MMOLE in Sodium Chloride 0.9% 500 ML IV ONE (10:39)
[2024-09-01] MEDS: Magnesium Sulfate/Water Premix 4 GM in Premix Bag 1 BAG IV ONE (11:26)
[2024-09-01] MEDS ORDERED: Acetaminophen 325 MG Tab PO SCH (15:45)
[2024-09-01] MEDS: Acetaminophen 325 MG Tab PO SCH (16:04)
[2024-09-01] MEDS: Simethicone 80 MG Tab.Chew PO PRN (16:05)
[2024-09-01] MEDS: Ibuprofen 800 MG Tab PO PRN (16:05)
[2024-09-01] MEDS ORDERED: Ondansetron 4 MG/2 ML SDV IVPUSH PRN (18:58)
[2024-09-02] MEDS: Sennosides/Docusate Sodium 50-8.6 MG Tab PO PRN (04:36)
[2024-09-02 04:48] LABS: BASOPHILS PERCENT AUTO 0.4 % (0.0-1.0); EOSINOPHILS ABSOLUTE AUTO 0.5 K/mm3 (0.0-0.4); EOSINOPHILS PERCENT AUTO 4.7 % (0.0-6.0); HEMATOCRIT 33.5 % (37.0-47.0); HEMOGLOBIN 11.3 gm/dl (12.0-16.0); IMMATURE GRAN ABSOLUTE AUTO 0.43 K/mm3 (0.00-0.05); LYMPHOCYTES ABSOLUTE AUTO 2.5 K/mm3 (1.0-4.8); LYMPHOCYTES PERCENT AUTO 23.7 % (24.0-44.0); MEAN CORPUSCULAR HEMOGLOBIN 29.2 pg (28.0-32.0); MEAN CORPUSCULAR HGB CONC 33.7 g/dl (32.0-36.0); MEAN CORPUSCULAR VOLUME 86.6 fl (83.0-99.0); MEAN PLATELET VOLUME 10.4 fl (9.4-12.3); MONOCYTES ABSOLUTE AUTO 1.1 K/mm3 (0.0-0.8); MONOCYTES PERCENT AUTO 10.6 % (0.0-8.0); NEUTROPHILS ABSOLUTE AUTO 6.1 K/mm3 (1.8-7.7); NEUTROPHILS PERCENT AUTO 56.6 % (41.0-71.0); PLATELET COUNT,PLT 156 K/mm3 (150-400); RED BLOOD CELL COUNT 3.87 M/mm3 (4.10-5.30); WHITE BLOOD CELL COUNT,WBC 10.71 K/mm3 (3.9-11.3)
[2024-09-02] MEDS: Pantoprazole 40 MG Tab.CR PO SCH (05:00)
[2024-09-02 05:18] LABS: ANION GAP 10.4 (5-15); CALCIUM 8.1 mg/dL (8.5-10.1); CREATININE 0.5 mg/dL (0.55-1.02); MAGNESIUM 1.8 mg/dL (1.8-2.4); PHOSPHORUS 2.9 mg/dL (2.6-4.7); POTASSIUM,K 3.4 mEq/L (3.5-5.1)
[2024-09-02] MEDS: Enoxaparin 40 MG/0.4 ML Syringe SUBCUT SCH (10:44)
[2024-09-02] MEDS: Potassium Phosphates 30 MMOLE in Sodium Chloride 0.9% 500 ML IV ONE (11:24)
[2024-09-03 05:55] LABS: ANION GAP 11.5 (5-15); BUN/CREATININE RATIO 17.5 (14-18); CREATININE 0.4 mg/dL (0.55-1.02); EST CRCL DRUG DOSING (CG) 98.75 mL/min; MAGNESIUM 1.7 mg/dL (1.8-2.4); PHOSPHORUS 3.4 mg/dL (2.6-4.7); POTASSIUM,K 3.5 mEq/L (3.5-5.1)
[2024-09-03] MEDS: Morphine 2 MG/ML SYRINGE IVPUSH ONE ×3 (12:30→22:37)
[2024-09-03] MEDS: Potassium Chloride 20 MEQ Tab.ER PO ONE (12:31)
[2024-09-03] MEDS: Magnesium Sulfate/Water Premix 4 GM in Premix Bag 1 BAG IV ONE (12:38)
[2024-09-03] MEDS: Sodium Chloride 0.9% 1,000 ML ONE (13:06)
[2024-09-03 13:25] LABS: BASOPHILS ABSOLUTE AUTO 0.1 K/mm3 (0.0-0.2); BASOPHILS PERCENT AUTO 0.5 % (0.0-1.0); EOSINOPHILS ABSOLUTE AUTO 0.2 K/mm3 (0.0-0.4); HEMATOCRIT 31.5 % (37.0-47.0); HEMOGLOBIN 10.7 gm/dl (12.0-16.0); IMMATURE GRAN ABSOLUTE AUTO 0.55 K/mm3 (0.00-0.05); IMMATURE GRAN PERCENT AUTO 4.7 % (0.0-0.4); LYMPHOCYTES ABSOLUTE AUTO 2.4 K/mm3 (1.0-4.8); LYMPHOCYTES PERCENT AUTO 20.7 % (24.0-44.0); MEAN CORPUSCULAR HEMOGLOBIN 29.5 pg (28.0-32.0); MEAN CORPUSCULAR VOLUME 86.8 fl (83.0-99.0); MEAN PLATELET VOLUME 10.9 fl (9.4-12.3); MONOCYTES ABSOLUTE AUTO 1.1 K/mm3 (0.0-0.8); MONOCYTES PERCENT AUTO 9.2 % (0.0-8.0); NEUTROPHILS ABSOLUTE AUTO 7.4 K/mm3 (1.8-7.7); NEUTROPHILS PERCENT AUTO 62.9 % (41.0-71.0); RED BLOOD CELL COUNT 3.63 M/mm3 (4.10-5.30); WHITE BLOOD CELL COUNT,WBC 11.68 K/mm3 (3.9-11.3)
[2024-09-03 13:30] LABS: PLATELET COUNT,PLT 235 K/mm3 (150-400)
[2024-09-03 14:27] LABS: INR 1.23; PROTHROMBIN TIME 12.9 SECONDS (9.7-12.0)
[2024-09-03] MEDS: Lactated Ringers 1,000 ML IV SCH (14:54)
[2024-09-03] MEDS: Morphine 2 MG/ML SYRINGE ONE (18:03)
[2024-09-03] MEDS: Sodium Chloride 0.9% 1,000 ML IV ONE (18:10)
[2024-09-04 05:31] LABS: BASOPHILS ABSOLUTE AUTO 0.1 K/mm3 (0.0-0.2); BASOPHILS PERCENT AUTO 0.5 % (0.0-1.0); EOSINOPHILS ABSOLUTE AUTO 0.6 K/mm3 (0.0-0.4); EOSINOPHILS PERCENT AUTO 3.8 % (0.0-6.0); HEMATOCRIT 28.6 % (37.0-47.0); HEMOGLOBIN 9.8 gm/dl (12.0-16.0); IMMATURE GRAN ABSOLUTE AUTO 0.56 K/mm3 (0.00-0.05); IMMATURE GRAN PERCENT AUTO 3.7 % (0.0-0.4); LYMPHOCYTES ABSOLUTE AUTO 3.4 K/mm3 (1.0-4.8); LYMPHOCYTES PERCENT AUTO 22.3 % (24.0-44.0); MEAN CORPUSCULAR HEMOGLOBIN 29.9 pg (28.0-32.0); MEAN CORPUSCULAR HGB CONC 34.3 g/dl (32.0-36.0); MEAN CORPUSCULAR VOLUME 87.2 fl (83.0-99.0); MEAN PLATELET VOLUME 10.7 fl (9.4-12.3); MONOCYTES ABSOLUTE AUTO 1.5 K/mm3 (0.0-0.8); MONOCYTES PERCENT AUTO 9.7 % (0.0-8.0); NEUTROPHILS ABSOLUTE AUTO 9.2 K/mm3 (1.8-7.7); PLATELET COUNT,PLT 277 K/mm3 (150-400); RED BLOOD CELL COUNT 3.28 M/mm3 (4.10-5.30); WHITE BLOOD CELL COUNT,WBC 15.27 K/mm3 (3.9-11.3)
[2024-09-04 05:49] LABS: ANION GAP 10.8 (5-15); CALCIUM 7.9 mg/dL (8.5-10.1); CREATININE 0.5 mg/dL (0.55-1.02); MAGNESIUM 2.1 mg/dL (1.8-2.4); POTASSIUM,K 3.8 mEq/L (3.5-5.1)
[2024-09-04 05:55] LABS: SLIDE REVIEW ABNORMAL SMEAR
[2024-09-04 11:42] LABS: APPEARANCE,URINE CLEAR (Clear); BILIRUBIN,URINE NEGATIVE (Negative); COLOR,URINE YELLOW (Yellow); GLUCOSE,URINE NEGATIVE (Negative); KETONES,URINE 2+ (Negative); LEUKOCYTE ESTERASE,URINE TRACE (Negative); NITRITE,URINE NEGATIVE (Negative); OCCULT BLOOD,URINE NEGATIVE (Negative); PROTEIN,URINE NEGATIVE (Negative); UROBILINOGEN,URINE 0.2 (0.2-1.0)
[2024-09-04 11:56] LABS: BACTERIA,URINE FEW /hpf (FEW); RBC,URINE 0-5 /hpf (0-5); WBC,URINE 0-5 /hpf (0-5)
[2024-09-04 11:57] LABS: MUCUS,URINE FEW /hpf (FEW)
[2024-09-04] MEDS ORDERED: Dronabinol 2.5 MG Cap PO ONE (12:01)
[2024-09-04] MEDS: Scopalamine 1mg/3day Transdermal Patch TRDERM PRN (12:27)
[2024-09-04] MEDS: Morphine 2 MG/ML SYRINGE IVPUSH ONE (15:05)
[2024-09-04] MEDS: VANCOmycin 1 GM in Sodium Chloride 0.9% 250 ML IV SCH (15:36)
[2024-09-04] MEDS: Potassium Chloride 20 MEQ Tab.ER PO ONE (16:34)
[2024-09-05 05:58] LABS: BASOPHILS ABSOLUTE AUTO 0.1 K/mm3 (0.0-0.2); BASOPHILS PERCENT AUTO 0.4 % (0.0-1.0); EOSINOPHILS ABSOLUTE AUTO 0.3 K/mm3 (0.0-0.4); EOSINOPHILS PERCENT AUTO 1.5 % (0.0-6.0); HEMATOCRIT 25.8 % (37.0-47.0); HEMOGLOBIN 8.7 gm/dl (12.0-16.0); IMMATURE GRAN ABSOLUTE AUTO 0.38 K/mm3 (0.00-0.05); IMMATURE GRAN PERCENT AUTO 2.3 % (0.0-0.4); LYMPHOCYTES ABSOLUTE AUTO 2.4 K/mm3 (1.0-4.8); LYMPHOCYTES PERCENT AUTO 14.5 % (24.0-44.0); MEAN CORPUSCULAR HEMOGLOBIN 29.4 pg (28.0-32.0); MEAN CORPUSCULAR HGB CONC 33.7 g/dl (32.0-36.0); MEAN CORPUSCULAR VOLUME 87.2 fl (83.0-99.0); MEAN PLATELET VOLUME 10.5 fl (9.4-12.3); MONOCYTES ABSOLUTE AUTO 1.3 K/mm3 (0.0-0.8); MONOCYTES PERCENT AUTO 7.7 % (0.0-8.0); NEUTROPHILS PERCENT AUTO 73.6 % (41.0-71.0); PLATELET COUNT,PLT 342 K/mm3 (150-400); RED BLOOD CELL COUNT 2.96 M/mm3 (4.10-5.30); WHITE BLOOD CELL COUNT,WBC 16.25 K/mm3 (3.9-11.3)
[2024-09-05 06:29] LABS: A/G RATIO 0.5 (1-2); ALBUMIN 1.4 g/dl (3.4-5.0); ANION GAP 10.6 (5-15); BILIRUBIN TOTAL 0.3 mg/dL (0.2-1.0); BUN/CREATININE RATIO 12.5 (14-18); C-REACTIVE PROTEIN 3.14 mg/dL (<0.30); CALCIUM 7.8 mg/dL (8.5-10.1); CREATININE 0.4 mg/dL (0.55-1.02); EST CRCL DRUG DOSING (CG) 98.75 mL/min; MAGNESIUM 1.7 mg/dL (1.8-2.4); PHOSPHORUS 3.6 mg/dL (2.6-4.7); POTASSIUM,K 3.6 mEq/L (3.5-5.1); PROTEIN TOTAL,TP 4.1 g/dl (6.4-8.2)
[2024-09-05] MEDS: Benzocaine 20% Topical Spray UD MUCMEM ONE (07:47)
[2024-09-05] MEDS ORDERED: Magnesium Sulfate (4.06 MEQ/ML) 5 GM/10 ML SDV IV ONE (11:14)
[2024-09-05] MEDS: Magnesium Sulfate/Water Premix 2 GM in Premix Bag 1 BAG IV ONE (11:30)
[2024-09-05] MEDS: Potassium Chloride 20 MEQ Tab.ER PO ONE (11:31)
[2024-09-05] MEDS: Furosemide 20 MG/2 ML VIAL IVPUSH ONE (14:06)
[2024-09-05] MEDS: VANCOmycin 1.25 GM/250 ML 1.25 GM in Premix Bag 1 BAG IV SCH (15:48)
[2024-09-06] MEDS: Acetaminophen 325 MG Tab PO PRN (03:38)
[2024-09-06 04:37] LABS: BASOPHILS PERCENT AUTO 0.2 % (0.0-1.0); EOSINOPHILS ABSOLUTE AUTO 0.3 K/mm3 (0.0-0.4); EOSINOPHILS PERCENT AUTO 1.7 % (0.0-6.0); HEMATOCRIT 26.3 % (37.0-47.0); HEMOGLOBIN 8.7 gm/dl (12.0-16.0); IMMATURE GRAN PERCENT AUTO 1.8 % (0.0-0.4); LYMPHOCYTES ABSOLUTE AUTO 3.1 K/mm3 (1.0-4.8); LYMPHOCYTES PERCENT AUTO 18.6 % (24.0-44.0); MEAN CORPUSCULAR HEMOGLOBIN 29.4 pg (28.0-32.0); MEAN CORPUSCULAR HGB CONC 33.1 g/dl (32.0-36.0); MEAN CORPUSCULAR VOLUME 88.9 fl (83.0-99.0); MEAN PLATELET VOLUME 10.1 fl (9.4-12.3); MONOCYTES ABSOLUTE AUTO 1.3 K/mm3 (0.0-0.8); NEUTROPHILS ABSOLUTE AUTO 11.6 K/mm3 (1.8-7.7); NEUTROPHILS PERCENT AUTO 69.7 % (41.0-71.0); PLATELET COUNT,PLT 440 K/mm3 (150-400); RED BLOOD CELL COUNT 2.96 M/mm3 (4.10-5.30); WHITE BLOOD CELL COUNT,WBC 16.63 K/mm3 (3.9-11.3)
[2024-09-06 04:55] LABS: A/G RATIO 0.5 (1-2); ALBUMIN 1.5 g/dl (3.4-5.0); ANION GAP 10.4 (5-15); BILIRUBIN TOTAL 0.3 mg/dL (0.2-1.0); C-REACTIVE PROTEIN 2.42 mg/dL (<0.30); CALCIUM 7.9 mg/dL (8.5-10.1); CREATININE 0.4 mg/dL (0.55-1.02); EST CRCL DRUG DOSING (CG) 98.75 mL/min; POTASSIUM,K 3.4 mEq/L (3.5-5.1); PROTEIN TOTAL,TP 4.3 g/dl (6.4-8.2)
[2024-09-06] MEDS: Sodium Chloride 0.9% 10 ML Syringe FLUSH ONE (09:28)
[2024-09-06] MEDS: Iopamidol 612 MG/ML 100 ML Bottle IVPUSH ONE (09:28)
[2024-09-06] MEDS: Potassium Chloride 20 MEQ Tab.ER PO ONE (09:58)
[2024-09-06] MEDS: Lactated Ringers 1,000 ML IV SCH (20:03)
[2024-09-06] MEDS: Benzocaine 20% Topical Spray UD MUCMEM PRN (21:33)
[2024-09-07 07:24] LABS: BASOPHILS ABSOLUTE AUTO 0.1 K/mm3 (0.0-0.2); BASOPHILS PERCENT AUTO 0.2 % (0.0-1.0); EOSINOPHILS PERCENT AUTO 0.1 % (0.0-6.0); HEMOGLOBIN 10.4 gm/dl (12.0-16.0); IMMATURE GRAN ABSOLUTE AUTO 0.17 K/mm3 (0.00-0.05); IMMATURE GRAN PERCENT AUTO 0.8 % (0.0-0.4); LYMPHOCYTES ABSOLUTE AUTO 1.9 K/mm3 (1.0-4.8); LYMPHOCYTES PERCENT AUTO 9.3 % (24.0-44.0); MEAN CORPUSCULAR HEMOGLOBIN 29.8 pg (28.0-32.0); MEAN CORPUSCULAR HGB CONC 33.5 g/dl (32.0-36.0); MEAN CORPUSCULAR VOLUME 88.8 fl (83.0-99.0); MEAN PLATELET VOLUME 9.9 fl (9.4-12.3); MONOCYTES ABSOLUTE AUTO 1.1 K/mm3 (0.0-0.8); MONOCYTES PERCENT AUTO 5.4 % (0.0-8.0); NEUTROPHILS ABSOLUTE AUTO 17.5 K/mm3 (1.8-7.7); NEUTROPHILS PERCENT AUTO 84.2 % (41.0-71.0); PLATELET COUNT,PLT 687 K/mm3 (150-400); RED BLOOD CELL COUNT 3.49 M/mm3 (4.10-5.30); WHITE BLOOD CELL COUNT,WBC 20.74 K/mm3 (3.9-11.3)
[2024-09-07 07:31] LABS: A/G RATIO 0.6 (1-2); ANION GAP 14.1 (5-15); BILIRUBIN TOTAL 0.3 mg/dL (0.2-1.0); CALCIUM 8.6 mg/dL (8.5-10.1); CREATININE 0.5 mg/dL (0.55-1.02); POTASSIUM,K 3.1 mEq/L (3.5-5.1); PROTEIN TOTAL,TP 5.3 g/dl (6.4-8.2)
[2024-09-07] MEDS: Potassium Chloride 10 MEQ in Premix Bag 1 BAG IV SCH (08:59)
[2024-09-07] MEDS ORDERED: Meropenem 1 GM in Sodium Chloride 0.9% 100 ML IV SCH (09:00)
[2024-09-07] MEDS: Meropenem 500 MG SDV IVPUSH SCH (09:55)
[2024-09-07] MEDS ORDERED: Denosumab 60 MG/1 ML Syringe SUBCUT ONE (15:43)
[2024-09-07] MEDS: Potassium Chloride 20 MEQ Tab.ER PO ONE (21:25)
[2024-09-08 04:42] LABS: BASOPHILS ABSOLUTE AUTO 0.1 K/mm3 (0.0-0.2); BASOPHILS PERCENT AUTO 0.3 % (0.0-1.0); EOSINOPHILS ABSOLUTE AUTO 0.3 K/mm3 (0.0-0.4); EOSINOPHILS PERCENT AUTO 1.8 % (0.0-6.0); HEMOGLOBIN 9.1 gm/dl (12.0-16.0); IMMATURE GRAN ABSOLUTE AUTO 0.14 K/mm3 (0.00-0.05); IMMATURE GRAN PERCENT AUTO 0.8 % (0.0-0.4); LYMPHOCYTES ABSOLUTE AUTO 3.2 K/mm3 (1.0-4.8); LYMPHOCYTES PERCENT AUTO 18.3 % (24.0-44.0); MEAN CORPUSCULAR HEMOGLOBIN 29.4 pg (28.0-32.0); MEAN CORPUSCULAR HGB CONC 33.7 g/dl (32.0-36.0); MEAN CORPUSCULAR VOLUME 87.4 fl (83.0-99.0); MEAN PLATELET VOLUME 9.7 fl (9.4-12.3); MONOCYTES ABSOLUTE AUTO 1.9 K/mm3 (0.0-0.8); MONOCYTES PERCENT AUTO 10.7 % (0.0-8.0); NEUTROPHILS ABSOLUTE AUTO 11.8 K/mm3 (1.8-7.7); NEUTROPHILS PERCENT AUTO 68.1 % (41.0-71.0); PLATELET COUNT,PLT 641 K/mm3 (150-400); RED BLOOD CELL COUNT 3.09 M/mm3 (4.10-5.30); WHITE BLOOD CELL COUNT,WBC 17.39 K/mm3 (3.9-11.3)
[2024-09-08 05:35] LABS: A/G RATIO 0.6 (1-2); ALBUMIN 1.7 g/dl (3.4-5.0); BILIRUBIN TOTAL 0.2 mg/dL (0.2-1.0); CALCIUM 8.5 mg/dL (8.5-10.1); CREATININE 0.4 mg/dL (0.55-1.02); EST CRCL DRUG DOSING (CG) 98.75 mL/min; PROTEIN TOTAL,TP 4.7 g/dl (6.4-8.2)
[2024-09-08 06:28] LABS: SLIDE REVIEW ABNORMAL SMEAR
[2024-09-09 04:45] LABS: BASOPHILS ABSOLUTE AUTO 0.1 K/mm3 (0.0-0.2); BASOPHILS PERCENT AUTO 0.4 % (0.0-1.0); EOSINOPHILS ABSOLUTE AUTO 0.4 K/mm3 (0.0-0.4); EOSINOPHILS PERCENT AUTO 2.5 % (0.0-6.0); HEMATOCRIT 25.6 % (37.0-47.0); HEMOGLOBIN 8.7 gm/dl (12.0-16.0); IMMATURE GRAN ABSOLUTE AUTO 0.09 K/mm3 (0.00-0.05); IMMATURE GRAN PERCENT AUTO 0.6 % (0.0-0.4); LYMPHOCYTES ABSOLUTE AUTO 2.7 K/mm3 (1.0-4.8); LYMPHOCYTES PERCENT AUTO 19.1 % (24.0-44.0); MEAN CORPUSCULAR HEMOGLOBIN 30.2 pg (28.0-32.0); MEAN CORPUSCULAR VOLUME 88.9 fl (83.0-99.0); MEAN PLATELET VOLUME 9.3 fl (9.4-12.3); MONOCYTES ABSOLUTE AUTO 1.6 K/mm3 (0.0-0.8); MONOCYTES PERCENT AUTO 11.2 % (0.0-8.0); NEUTROPHILS ABSOLUTE AUTO 9.5 K/mm3 (1.8-7.7); NEUTROPHILS PERCENT AUTO 66.2 % (41.0-71.0); PLATELET COUNT,PLT 663 K/mm3 (150-400); RED BLOOD CELL COUNT 2.88 M/mm3 (4.10-5.30); WHITE BLOOD CELL COUNT,WBC 14.34 K/mm3 (3.9-11.3)
[2024-09-09 05:13] LABS: A/G RATIO 0.6 (1-2); ALBUMIN 1.7 g/dl (3.4-5.0); ANION GAP 11.3 (5-15); BILIRUBIN TOTAL 0.3 mg/dL (0.2-1.0); BUN/CREATININE RATIO 12.5 (14-18); CALCIUM 8.3 mg/dL (8.5-10.1); CREATININE 0.4 mg/dL (0.55-1.02); EST CRCL DRUG DOSING (CG) 98.75 mL/min; POTASSIUM,K 3.3 mEq/L (3.5-5.1); PROTEIN TOTAL,TP 4.4 g/dl (6.4-8.2)
[2024-09-09 06:44] LABS: SLIDE REVIEW ABNORMAL SMEAR
[2024-09-09] MEDS: Morphine 15 MG Tab.ER PO SCH (13:21)
[2024-09-09] MEDS: LORazepam 2 MG/ML SDV IVPUSH ONE (16:51)
[2024-09-09] MEDS: LORazepam 2 MG/ML SDV IVPUSH PRN (20:56)
[2024-09-10] MEDS: Polyethylene Glycol 3350 Powder 17 GM Packet PO SCH (08:23)
[2024-09-10] MEDS: Tiotropium BR/Olodaterol HCL 4 GM Inhalation Spray 2.5mcg/1 dose; 10 doses INH SCH (16:58)
[2024-09-10] MEDS: Potassium Chloride 20 MEQ Tab.ER PO ONE (20:34)
[2024-09-10] MEDS: Calcium Carbonate/Vitamin D3 600 MG-200 Units Tab PO SCH (20:34)
[2024-09-11 05:44] LABS: HEMOGLOBIN 8.3 gm/dl (12.0-16.0); MEAN CORPUSCULAR HEMOGLOBIN 30.3 pg (28.0-32.0); MEAN CORPUSCULAR HGB CONC 33.2 g/dl (32.0-36.0); MEAN CORPUSCULAR VOLUME 91.2 fl (83.0-99.0); MEAN PLATELET VOLUME 9.6 fl (9.4-12.3); PLATELET COUNT,PLT 631 K/mm3 (150-400); RED BLOOD CELL COUNT 2.74 M/mm3 (4.10-5.30); WHITE BLOOD CELL COUNT,WBC 12.82 K/mm3 (3.9-11.3)
[2024-09-11 05:58] LABS: ANION GAP 8.5 (5-15); CALCIUM 8.4 mg/dL (8.5-10.1); CREATININE 0.5 mg/dL (0.55-1.02); MAGNESIUM 1.9 mg/dL (1.8-2.4)
[2024-09-11 06:26] LABS: POTASSIUM,K 4.5 mEq/L (3.5-5.1)
[2024-09-11] MEDS: Clopidogrel 75 MG Tab PO SCH (10:04)
[2024-09-11] MEDS: Calcium Carbonate 500 MG Tab.Chew PO PRN (22:12)
[2024-09-13] MEDS: Lidocaine 4% 1 each Patch TOP PRN (15:38)
[2024-09-15] MEDS: Carboxymethylcellulose Sodium 1% Ophth Gel 15 ML Bottle EYEBOTH PRN (15:00)
[2024-09-16] MEDS: Morphine 15 MG Tab PO SCH (08:49)
[2024-09-16 12:11] LABS: APPEARANCE,URINE CLEAR (Clear); BILIRUBIN,URINE NEGATIVE (Negative); COLOR,URINE YELLOW (Yellow); GLUCOSE,URINE NEGATIVE (Negative); KETONES,URINE NEGATIVE (Negative); LEUKOCYTE ESTERASE,URINE NEGATIVE (Negative); NITRITE,URINE NEGATIVE (Negative); OCCULT BLOOD,URINE NEGATIVE (Negative); PH,URINE 7.5 (5.0-8.0); PROTEIN,URINE NEGATIVE (Negative); UROBILINOGEN,URINE 0.2 (0.2-1.0)
[2024-09-19] MEDS: LORazepam 0.5 MG Tab PO PRN (00:37)
[2024-09-20] MEDS: Enoxaparin 30 MG/0.3 ML Syringe SUBCUT SCH (13:35)
[2024-09-20] MEDS: Acetaminophen 325 MG Tab PO PRN (17:56)
[2024-09-21 04:54] LABS: BASOPHILS ABSOLUTE AUTO 0.1 K/mm3 (0.0-0.2); BASOPHILS PERCENT AUTO 0.8 % (0.0-1.0); EOSINOPHILS ABSOLUTE AUTO 0.5 K/mm3 (0.0-0.4); EOSINOPHILS PERCENT AUTO 6.6 % (0.0-6.0); HEMATOCRIT 27.9 % (37.0-47.0); HEMOGLOBIN 9.2 gm/dl (12.0-16.0); IMMATURE GRAN ABSOLUTE AUTO 0.04 K/mm3 (0.00-0.05); IMMATURE GRAN PERCENT AUTO 0.5 % (0.0-0.4); LYMPHOCYTES ABSOLUTE AUTO 2.4 K/mm3 (1.0-4.8); LYMPHOCYTES PERCENT AUTO 30.2 % (24.0-44.0); MEAN CORPUSCULAR HEMOGLOBIN 29.8 pg (28.0-32.0); MEAN CORPUSCULAR VOLUME 90.3 fl (83.0-99.0); MEAN PLATELET VOLUME 9.4 fl (9.4-12.3); MONOCYTES ABSOLUTE AUTO 1.1 K/mm3 (0.0-0.8); MONOCYTES PERCENT AUTO 14.4 % (0.0-8.0); NEUTROPHILS ABSOLUTE AUTO 3.8 K/mm3 (1.8-7.7); NEUTROPHILS PERCENT AUTO 47.5 % (41.0-71.0); RED BLOOD CELL COUNT 3.09 M/mm3 (4.10-5.30); WHITE BLOOD CELL COUNT,WBC 7.92 K/mm3 (3.9-11.3)
[2024-09-21 04:59] LABS: PLATELET COUNT,PLT 373 K/mm3 (150-400)
[2024-09-21 05:10] LABS: A/G RATIO 0.6 (1-2); ALBUMIN 2.3 g/dl (3.4-5.0); ANION GAP 11.8 (5-15); BILIRUBIN TOTAL 0.2 mg/dL (0.2-1.0); BUN/CREATININE RATIO 23.3 (14-18); CALCIUM 9.3 mg/dL (8.5-10.1); CREATININE 0.6 mg/dL (0.55-1.02); EST CRCL DRUG DOSING (CG) 65.84 mL/min; POTASSIUM,K 3.8 mEq/L (3.5-5.1)
[2024-09-22] MEDS: Enoxaparin 40 MG/0.4 ML Syringe SUBCUT SCH (10:55)
[2024-09-23 14:26] VITALS: BP 107/56; PULSE 92
== END 2024-09-23 10:29 | disposition home or self-care (01) | DRG 329 ==
LOC: JD.ED 11:10 → JD.SDS 15:24 → JD.ICU 15:25 → JD.MS 09-02 20:39
PROVIDERS: ADMIT Surgery; ATTEND Surgery
PROC: 0DBN0ZZ Excision of Sigmoid Colon, Open Approach (ICD-10-PCS; 2024-08-28)
PROC: 3E033XZ Introduction of Vasopressor into Peripheral Vein, Percutaneous Approach (ICD-10-PCS; 2024-08-28)
PROC: 03HY32Z Insertion of Monitoring Device into Upper Artery, Percutaneous Approach (ICD-10-PCS; 2024-08-28)
PROC: 4A133B1 Monitoring of Arterial Pressure, Peripheral, Percutaneous Approach (ICD-10-PCS; 2024-08-28)
PROC: 4A133J1 Monitoring of Arterial Pulse, Peripheral, Percutaneous Approach (ICD-10-PCS; 2024-08-28)
PROC: 0D1N0Z4 Bypass Sigmoid Colon to Cutaneous, Open Approach (ICD-10-PCS; principal; 2024-08-28 15:51)
DX: K63.1 Perforation of intestine (nontraumatic) (principal); J18.9 Pneumonia, unspecified organism; J96.01 Acute respiratory failure with hypoxia; K55.9 Vascular disorder of intestine, unspecified; R78.81 Bacteremia; K91.31 Postprocedural partial intestinal obstruction; I25.10 Atherosclerotic heart disease of native coronary artery without angina pectoris; E78.00 Pure hypercholesterolemia, unspecified; I50.9 Heart failure, unspecified; I11.0 Hypertensive heart disease with heart failure; G47.30 Sleep apnea, unspecified; K59.09 Other constipation; M54.9 Dorsalgia, unspecified; G89.29 Other chronic pain; J44.9 Chronic obstructive pulmonary disease, unspecified; I95.81 Postprocedural hypotension; F11.90 Opioid use, unspecified, uncomplicated; I73.9 Peripheral vascular disease, unspecified; E83.42 Hypomagnesemia; E83.39 Other disorders of phosphorus metabolism; E87.6 Hypokalemia; Y95 Nosocomial condition; Z88.8 Allergy status to other drugs, medicaments and biological substances; Z88.0 Allergy status to penicillin; Z88.6 Allergy status to analgesic agent; Z88.1 Allergy status to other antibiotic agents; Z79.899 Other long term (current) drug therapy; Z79.51 Long term (current) use of inhaled steroids; Z79.82 Long term (current) use of aspirin; Z79.02 Long term (current) use of antithrombotics/antiplatelets; I25.2 Old myocardial infarction; Z87.891 Personal history of nicotine dependence; Z95.5 Presence of coronary angioplasty implant and graft
CPT/HCPCS: 00790; 36415; 36600; 71045; 71045-26; 74176; 74176-26; 74177; 74177-26; 76705; 76705-26; 80048; 80053; 80202; 81001; 81003; 82803; 83605; 83690; 83735; 83880; 84100; 84439; 84443; 85025; 85027; 85610; 85730; 86140; 86850; 86900; 86901; 87040; 87154; 87428-QW; 87493; 87641; 93005; 93010; 93970; 93970-26; 94002; 94640; 94760; 94761; 94762; 96361; 96374; 96376; 97110-GP; 97112-GP; 97116-GP; 97161-GP; 97530-GP; 99222; 99223; 99231; 99232; 99285; 99285-25; A9270-GY; J0171; J0457; J1100; J1644; J1650; J1836; J1885; J1940; J1956; J2060; J2185; J2270; J2371; J2405; J2470; J2704; J3010; J3372; J3475; J3480; J3490; J7030; J7040; J7120; Q9967